=== PATIENT | female | born 1960 | race Two or more races ===

== ENCOUNTER 2016-09-26 23:38 | Emergency (ER) | payer MEDICAID ==
[~2016-09-26] VITALS: Ht 165.1 cm; Wt 77.1 kg
[2016-09-27] VITALS: BP 150/94
[2016-09-27 00:37] LABS: Basophils # (auto) 0 uL; Basophils % (auto) 0.3 % (0.0-2.0); Eosinophils # (auto) 0 uL; Hematocrit 38.9 % (36.0-46.0); Hemoglobin 12.8 g/dL (12.2-16.2); Lymphocytes # (auto) 1.6 uL; Lymphocytes % (auto) 11.6 % (10.0-50.0); Mean Corpuscular Hgb Conc. 32.8 g/dL (32.0-36.0); Mean Corpuscular Volume 91.4 fL (80.0-100.0); Mean Platelet Volume 6.8 fL (7.4-10.4); Monocytes # (auto) 0.8 uL; Monocytes % (auto) 5.7 % (0.0-12.0); Neutrophils # (auto) 11.1 uL; Neutrophils % (auto) 82.4 % (37.0-80.0); Platelet Count (auto) 437 10^3/uL (140-450); Red Cell Distribution Width 14.1 % (11.6-16.0); SUSPECT VIEW TRANSMISSION; White Blood Cell 13.5 10^3/uL (4.4-10.8)
[2016-09-27 00:49] LABS: INR 0.97 (0.9-1.15); Partial Thromboplastin Time 23.8 sec (22.64-33.71); Prothrombin Time 10.6 sec (9.37-12.3)
[2016-09-27 01:02] LABS: Albumin 3.4 g/dL (3.4-5.0); BUN/Creatinine Ratio 11.7; Calcium 8.2 mg/dL (8.5-10.1); Potassium 3.5 mmol/L (3.5-5.1)
[2016-09-27 01:07] LABS: Bilirubin, Total 0.1 mg/dL (0.2-1.0); Total Protein 7.6 g/dL (6.4-8.2)
== END 2016-09-27 03:35 | disposition left against medical advice (07) ==
LOC: ER 23:45
DX: F41.9 Anxiety disorder, unspecified (principal); R42 Dizziness and giddiness; Z53.21 Procedure and treatment not carried out due to patient leaving prior to being seen by health care provider
CPT/HCPCS: 36415; 80053; 82962; 84484; 85025; 85610; 85730; 93005